=== PATIENT | male | born 2000 | race Hispanic/Latino ===

== ENCOUNTER 2021-02-09 20:11 | Emergency (ER) | payer SELFPAY ==
[2021-02-09 21:23] LABS: Actual Bicarbonate (HCO3a) 24.8 mEq/L (22-28); Base Excess (BEa) 0.9 mEq/L (-2.0 to +3.0); CO2 Tension 37.5 mmHg (35.0-45.0); Calcium, Ionized (arterial) 1.22 mmol/L (1.12-1.30); Carboxyhemoglobin (COHb) 0.1 gm% (0.0-3.0); O2 Tension (PaO2), arterial 84.5 mmHg (80.0-100.0); Potassium - ABG Lab 3.9 mmol/L (3.70-5.30); Puncture Site RRA; pH, Arterial 7.44 (7.35-7.45)
[2021-02-09 21:26] LABS: ALV-art Gradient 18.355 mmHg (0-20)
== END 2021-02-09 21:42 | disposition home or self-care (01) ==
LOC: CSHERS 20:11
DX: R42 Dizziness and giddiness (principal); J45.909 Unspecified asthma, uncomplicated
CPT/HCPCS: 36416; 36600; 82805; 99284